=== PATIENT | male | born 1965 | race Asian ===

== ENCOUNTER 2023-07-29 15:54 | Emergency (ER) | payer OTHER ==
[~2023-07-29] VITALS: Ht 167.6 cm; Wt 77.3 kg
[2023-07-29 16:02] VITALS: BP 143/82; PULSE 86; RESP 18; TEMP 99.1
[2023-07-29 17:44] LABS: BASOPHILS % (AUTO) 0.4 % (0.0-2.0); EOSINOPHILS % (AUTO) 2.5 % (1.0-6.0); HEMATOCRIT 42.1 % (41-53); HEMOGLOBIN 14.4 g/dL (13.5-17.5); LYMPHOCYTES # (AUTO) 2.2 K/uL (1.0-4.8); LYMPHOCYTES % (AUTO) 21.1 % (22.0-44.0); MEAN CORPUSCULAR HEMOGLOBIN 32.9 pg (26.0-34.0); MEAN CORPUSCULAR HGB CONC 34.3 G/dL (31.0-37.0); MEAN CORPUSCULAR VOLUME 96 fL (80-100); MONOCYTES # (AUTO) 0.8 K/uL (0.1-1.0); MONOCYTES % (AUTO) 7.8 % (2.0-9.0); NEUTROPHILS # (AUTO) 7.1 K/uL (1.8-7.7); NEUTROPHILS % (AUTO) 68.2 % (40.0-70.0); PLATELET COUNT (AUTO) 283 K/uL (150-450); RED BLOOD CELL COUNT(AUTO) 4.39 MIL/uL (4.50-5.90); RED CELL DISTRIBUTION WIDTH 13.1 % (11.5-14.5); WHITE BLOOD COUNT (AUTO) 10.4 K/uL (4.5-11.0)
[2023-07-29 17:58] LABS: CALCIUM, TOTAL 8.9 mg/dL (8.8-10.5); CREATININE 1.24 mg/dL (0.60-1.30); POTASSIUM 3.6 mmol/L (3.5-5.1)
[2023-07-29] MEDS ORDERED: IBUPROFEN 400 MG TABLET PO ONE (18:00)
[2023-07-29] MEDS ORDERED: CEPHALEXIN MONOHYDRATE 500 MG CAPSULE PO ONE (18:00)
[2023-07-29] MEDS ORDERED: IBUP-1506 PO (18:01)
[2023-07-29] MEDS ORDERED: CEPH-558 PO (18:01)
[2023-07-29 18:03] LABS: ALBUMIN 3.9 g/dL (3.4-5.0); TOTAL PROTEIN, SERUM 7.7 g/dL (6.4-8.2)
[2023-07-29] MEDS ORDERED: SULF-261 PO (18:49)
[2023-07-29] MEDS ORDERED: CeFAZolin SODIUM 1 GM VIAL IM ONE (19:00)
== END 2023-07-29 19:12 | disposition home or self-care (01) ==
LOC: EMS 15:55
DX: L03.113 Cellulitis of right upper limb (principal); I10 Essential (primary) hypertension
CPT/HCPCS: 99284; 80053; 85025; 36415; 73130; 96372; J0690